=== PATIENT | male | born 1965 | race Hispanic/Latino ===

== ENCOUNTER 2020-04-12 09:26 | Inpatient (IN) | payer SELFPAY ==
[2020-04-12] MEDS ORDERED: SODIUM CHLORIDE 0.9% 1000ML 1,000 ML IVS ONE ×2 (09:41→10:34)
[2020-04-12] MEDS ORDERED: KETOROLAC TROMETHAMINE INJ 30 MG/ML VIAL IV ONE (09:41)
[2020-04-12] MEDS ORDERED: ONDANSETRON INJ 4 MG/2 ML VIAL IV ONE (09:41)
--- NOTE | 2020-04-12 09:50 | ED.PDOC ---
History of Present Illness - General Time Seen by Provider: 04/12/20 09:40 Source: patient, RN notes reviewed, Vital Signs reviewed, other - iPad guest services lead used during all communications with patient Exam Limitations: no limitations - History of Present Illness Initial Comments: 55-year-old male with past medical history of diabetes who presents to ED for 3- day history of generalized weakness, nausea, vomiting and "bone pain". Denies any recent exposure to COVID 19. He denies fever, cough, sore throat, shortness of breath or abdominal pain. Has not taken anything at home for his symptoms. Allergies/Adverse Reactions: Allergies NO KNOWN ALLERGY Allergy (Verified 04/12/20 09:45) Review of Systems - Review of Systems Constitutional: States: malaise. Denies: chills, fever EENTM: Denies: blurred vision, nose congestion, throat pain, throat swelling Respiratory: Denies: cough, short of breath, wheezing Cardiology: Denies: chest pain, edema, palpitations, syncope Gastrointestinal/Abdominal: States: nausea, vomiting. Denies: abdominal pain, diarrhea Genitourinary: States: no symptoms reported Musculoskeletal: States: other - diffuse body aches Skin: States: no symptoms reported Neurological: Denies: headache, paresthesia All other Systems: Reviewed and Negative Family Medical History - Family History Mother Family History: No Known Physical Exam - Physical Exam General Appearance: Alert, Comfortable, No apparent distress Ears, Nose, Throat: other - No erythema or edema to oropharynx Neck: full range of motion, supple Respiratory: chest non-tender, lungs clear, normal breath sounds, no respiratory distress, no accessory muscle use Cardiovascular/Chest: regular rate, rhythm, no murmur Gastrointestinal/Abdominal: non tender, soft, no pulsatile mass Back Exam: no CVA tenderness, no vertebral tenderness Extremity: normal range of motion, non-tender, no pedal edema Neurologic: alert, normal mood/affect Skin Exam: normal color, warm/dry Progress - Progress Progress: 04/12/20 09:52 Full PPE used in room. Stood 6 feet away except for exam. 04/12/20 11:08 Patient presents to ED for 3-day history of fatigue and body aches with nausea and vomiting. Chest x-ray is consistent with COVID 19 infection. He has no respiratory distress or hypoxia and denies feeling short of breath. His pulse ox has been in the upper 90s on room air. Labs show mild DKA with blood glucose of 381. Tachycardia resolved with IV fluids. Sepsis is due to to COVID-19 viral infection. No antibiotics are started due to this. Will give IV fluids, insulin and admit for continued evaluation and treatment. Patient agrees with plan of care. Discussed with Leticia hospitalist, who will admit. - Results/Orders Results/Orders: EKG- Sinus tachycardia, rate 138, nml intervals, No ST abnormality Chest xray EXAM DESCRIPTION: Chest,1 View CLINICAL HISTORY: 55 years Male, cough COMPARISON: None. FINDINGS: The heart and mediastinum are within normal limits. The lung husain are remarkable for a large ill-defined infiltrate within the left upper and mid lung husain. Underlying Covid infection should be considered. The pulmonary vascularity is unremarkable. No active pleural disease is present. IMPRESSION: 1. Large infiltrate in the left lung field suspicious for a Covid infection COVID 19 POSITIVE 04/12/20 11:01 BLOOD CULTURE Stat Laboratory Results - last 24 hr 04/12/20 04/12/20 04/12/20 10:05 10:05 10:10 WBC 15.7 H RBC 4.83 Hgb 14.5 Hct 40.8 L MCV 84.6 MCH 30.2 MCHC 35.6 RDW 13.4 Plt Count 258 MPV 8.4 Absolute Neuts (auto) 14.50 H Absolute Lymphs (auto) 0.50 L Absolute Monos (auto) 0.70 Absolute Eos (auto) 0.00 Absolute Basos (auto) 0.00 Neutrophils % 92.3 H Lymphocytes % 3.1 L Monocytes % 4.4 Eosinophils % 0.0 L Basophils % 0.2 pCO2 pO2 HCO3 ABG pH ABG O2 Saturation ABG Base Excess ABG Deoxyhemoglobin Oxyhemoglobin % Carboxyhemoglobin % Methemoglobin % Sat Calc Total Hemoglobin Sodium 124 L Potassium 3.1 L Chloride 87 L Carbon Dioxide 16 L Anion Gap 24.1 H BUN 21 H Creatinine 1.13 BUN/Creatinine Ratio 18.6 Random Glucose 381 H Serum Osmolality 268.3 L Lactic Acid Calcium 7.7 L Total Bilirubin 1.9 H AST 44 H ALT 36 Alkaline Phosphatase 97 Serum Total Protein 7.9 Albumin 3.4 Globulin 4.5 H Albumin/Globulin Ratio 0.8 L Lipase 55 H Urine Color Yellow Urine Appearance Clear Urine pH 5.5 Ur Specific [place] 1.025 Urine Protein >=300 H Urine Glucose (UA) 500 H Urine Ketones >=160 Urine Blood Moderate H Urine Nitrite Negative Urine Bilirubin Small H Urine Urobilinogen 0.2 Ur Leukocyte Esterase Negative Urine RBC 20-30 H Urine WBC 0 Ur Epithelial Cells 0-1 Urine Bacteria 0 Serum Ketones 04/12/20 04/12/20 04/12/20 10:10 10:34 11:15 WBC RBC Hgb Hct MCV MCH MCHC RDW Plt Count MPV Absolute Neuts (auto) Absolute Lymphs (auto) Absolute Monos (auto) Absolute Eos (auto) Absolute Basos (auto) Neutrophils % Lymphocytes % Monocytes % Eosinophils % Basophils % pCO2 23 L pO2 80 L HCO3 15.4 ABG pH 7.438 ABG O2 Saturation 96.0 ABG Base Excess -6.9 ABG Deoxyhemoglobin 3.9 Oxyhemoglobin % 94.1 Carboxyhemoglobin % 0.7 Methemoglobin % Sat 1.3 Calc Total Hemoglobin 12.7 L Sodium Potassium Chloride Carbon Dioxide Anion Gap BUN Creatinine BUN/Creatinine Ratio Random Glucose Serum Osmolality Lactic Acid 2.9 H* Calcium Total Bilirubin AST ALT Alkaline Phosphatase Serum Total Protein Albumin Globulin Albumin/Globulin Ratio Lipase Urine Color Urine Appearance Urine pH Ur Specific [place] Urine Protein Urine Glucose (UA) Urine Ketones Urine Blood Urine Nitrite Urine Bilirubin Urine Urobilinogen Ur Leukocyte Esterase Urine RBC Urine WBC Ur Epithelial Cells Urine Bacteria Serum Ketones Small Departure - Departure Clinical Impression: COVID-19, Hypokalemia, Dehydration DKA (diabetic ketoacidosis) Qualifiers: Diabetes mellitus type: type 2 Diabetes mellitus complication detail: without coma Qualified Code(s): E11.10 - Type 2 diabetes mellitus with ketoacidosis without coma Time of Disposition: 11:13 Disposition: Admit Patient Condition: Fair Decision To Admit - Decistion To Admit Decision to Admit Date: 04/12/20 Decision to Admit Time: 11:11
--- NOTE | 2020-04-12 10:12 | RAD ---
EXAM DESCRIPTION: Chest,1 View CLINICAL HISTORY: 55 years Male, cough COMPARISON: None. FINDINGS: The heart and mediastinum are within normal limits. The lung husain are remarkable for a large ill-defined infiltrate within the left upper and mid lung husain. Underlying Covid infection should be considered. The pulmonary vascularity is unremarkable. No active pleural disease is present. IMPRESSION: 1. Large infiltrate in the left lung field suspicious for a Covid infection Electronically signed by: Bryn Love MD 04/12/2020 10:10 AM CDT
[2020-04-12] MEDS ORDERED: INSULIN, REG.(HUMAN) 100 U/ML VIAL IV ONE (11:13)
--- NOTE | 2020-04-12 12:10 | HP ---
SUPERVISING PHYSICIAN: Jermaine Izaguirre M.D. Please note that the patient is [id number] and an spanish interpreter was used to get medical history as well as signs and symptoms. History will be minimal due to the language barrier. HISTORY OF PRESENT ILLNESS: This is a 55 year-old male patient that has a medical history of diabetes of unknown type. He came to the Emergency Department with a 3 day history of generalized weakness, nausea, vomiting and generalized muscle aches and pains. He denied any recent exposure to COVID-19. He also denied any fevers, cough or sore throat. No shortness of breath or abdominal pain. He has not been taking any medications at home. He does take some sort of diabetic medications that he gets in [place], but it is of an unknown kind. Vital signs were temperature 98.2, heart rate 132, blood pressure 165/97, respiratory rate 24 to 26 with an O2 saturation of 95% on room air. Laboratory studies were done. His WBCs were 15,700 with a left shift on his differential. Hemoglobin was 14.5, hematocrit 40.8. Blood gas showed a pCO2 of 23, pO2 of 80 and a pH of 7.43. His O2 saturation was 96%. Chemistry showed a sodium of 124, potassium 3.1, chloride 87, carbon dioxide 16, anion gap 24, BUN 21, creatinine 1.13, glucose 381, lactic acid 2.8, calcium 7.7. Total bilirubin was 1.9, AST was 44. Urinalysis showed greater than 300 urine protein, 500 of urine glucose, moderate urine blood, small amount of urine bilirubin and 20 to 30 urine RBCs. Serum ketones were small. COVID-19 test was positive. Blood cultures were obtained. Chest x-ray showed: 1. Large infiltrate in the left lung field suspicious for COVID infection. He was given 2 liters of fluids in the Emergency Room as well as given some Zofran, some Toradol and some regular insulin IV. He was also given azithromycin and Ceftriaxone. His heart rate did come down to the 100s. I was called for hospital admission. PAST MEDICAL HISTORY: 1. Diabetes mellitus. PAST SURGICAL HISTORY: None. OUTPATIENT MEDICATIONS: 1. Some diabetic medication from [place]. ALLERGIES: NO KNOWN DRUG ALLERGIES. FAMILY HISTORY: Unknown. SOCIAL HISTORY: He lives and works in [place]. He denies any tobacco, ETOH or illicit drug use. REVIEW OF SYSTEMS: GENERAL: Negative for chills or fever. HEENT: Negative for sore throat or nasal congestion. RESPIRATORY: Negative for wheezing, coughing or shortness of breath. CARDIAC: Negative for chest pains. GASTROINTESTINAL: Positive for nausea. Negative for vomiting, abdominal pain, diarrhea or constipation. GENITOURINARY: Negative for dysuria. MUSCULOSKELETAL: Positive for myalgias. NEUROLOGIC: Negative for headaches. PHYSICAL EXAMINATION: VITAL SIGNS: Temperature 98.4, heart rate 104, blood pressure 135/87, respiratory rate 22, O2 saturation 99% on 2 liters nasal cannula. GENERAL: This is a 55 year-old male patient who is in no acute distress. HEENT: Normocephalic, atraumatic. Oropharynx is clear. NECK: Supple without mass. RESPIRATORY: Somewhat diminished throughout more so on the left than on the right. He is tachypneic at times with a respiratory rate 22 to 24. CARDIOVASCULAR: Regular rate and rhythm. At times he is tachycardic. GASTROINTESTINAL: Abdomen is soft. It is nondistended, nontender. Bowel sounds are positive. NEUROLOGIC: Awake and alert. LABORATORY AND FILMS: As per the history of present illness. ASSESSMENT: 1. Hyperglycemia in an unknown type diabetic with positive ketones, positive anion gap and normal pH. 2. COVID-19 pneumonia mostly left sided. 3. History of diabetes mellitus, unknown type. Was taking an oral medication from [place]. 4. Acute kidney injury. 5. Poor medical compliance. 6. Nausea and vomiting and dehydration secondary to #1. PLAN: The patient has been admitted to the hospital. He will get fluids from the diabetic ketoacidosis guidelines as well as every 4 hour labs. Will also put him on sliding scale insulin every 4 hours. I have given him some potassium supplementation as well as put potassium in his IV fluids. I have also started him on the pneumonia protocol and continued his Rocephin and azithromycin. I have also given him Lovenox for DVT prophylaxis and Decadron 6 mg IV daily. I have ordered some COVID lab, including a D-dimer, fibrinogen and CRP. Will need to do extensive diabetic teaching and at some point we may need to determine if he has type 1 or type 2 diabetes. We will correct his blood sugars and treat his COVID-19 aggressively, that includes aggressive pulmonary hygiene. Will continue to monitor closely and follow as needed. [facility][id number] [facility]
[2020-04-12] MEDS ORDERED: ONDANSETRON INJ 4 MG/2 ML VIAL IV PRN (13:19)
[2020-04-12] MEDS ORDERED: SODIUM CHLORIDE 0.9% (FLUSH) 10 ML SYG IV PRN (13:19)
[2020-04-12] MEDS ORDERED: GLUCAGON INJ 1 MG VIAL SUBCU PRN (13:25)
[2020-04-12] MEDS ORDERED: DEXTROSE 50% 25 GM/50 ML SYG IV PRN (13:25)
[2020-04-12] MEDS ORDERED: POTASSIUM CHLORIDE 20 MEQ TAB PO ONE (13:27)
[2020-04-12] MEDS ORDERED: cefTRIAXone SODIUM 1 GM in SODIUM CHL 0.9% 50ML MIN-BAG+ 50 ML IVPB ONE (13:32)
[2020-04-12] MEDS ORDERED: ALBUTEROL INHALER 64 PUFF/8GM INH PRN (13:32)
[2020-04-12] MEDS ORDERED: AZITHROMYCIN IV 500 MG in SODIUM CHLORIDE 0.9% 250ML 250 ML IVPB ONE (15:00)
[2020-04-12] MEDS: DEXAMETHASONE INJ 10 MG/ML VIAL IV SCH (15:09)
[2020-04-12] MEDS: IV SET AND CAP CHANGE INJ INJ SCH (15:10)
[2020-04-12] MEDS: ENOXAPARIN SODIUM 40 MG/0.4 ML SYG SUBCU SCH (15:10)
[2020-04-12] MEDS: KCL 20 MEQ/NS 1,000 ML IVS PRN ×2 (15:11→19:35)
[2020-04-12] MEDS: INSULIN LISPRO 100 UNITS/ML PEN SUBCU SCH ×3 (15:20→19:37)
[2020-04-12] MEDS: ALBUTEROL INHALER 64 PUFF/8GM INH SCH ×2 (16:25→20:27)
[2020-04-12] MEDS ORDERED: HALOPERIDOL LACTATE INJ 5 MG/ML VIAL IM PRN (17:59)
[2020-04-12] MEDS ORDERED: PROMETHAZINE HCL INJ 25 MG in SODIUM CHLORIDE 0.9% 50ML 50 ML IVPB PRN (18:00)
[2020-04-12] MEDS ORDERED: CALCIUM GLUCONATE INJ 1 GM in SODIUM CHLORIDE 0.9% 50ML 50 ML IVPB ONE (18:57)
[2020-04-12] MEDS ORDERED: KCL 20 MEQ/NS 1,000 ML IVS ONE (19:16)
[2020-04-13] MEDS: INSULIN LISPRO 100 UNITS/ML PEN SUBCU SCH ×6 (00:32→20:15)
[2020-04-13] MEDS ORDERED: PANTOPRAZOLE SODIUM IV 40 MG VIAL ONE (04:23)
[2020-04-13] MEDS: PANTOPRAZOLE SODIUM IV 40 MG VIAL IV SCH (05:33)
[2020-04-13] MEDS: cefTRIAXone SODIUM 1 GM in SODIUM CHL 0.9% 50ML MIN-BAG+ 50 ML IVPB SCH (08:43)
[2020-04-13] MEDS: DEXAMETHASONE INJ 10 MG/ML VIAL IV SCH (08:44)
[2020-04-13] MEDS: ENOXAPARIN SODIUM 40 MG/0.4 ML SYG SUBCU SCH (08:44)
[2020-04-13] MEDS ORDERED: AZITHROMYCIN IV 500 MG VIAL IVPB ONE (08:56)
[2020-04-13] MEDS ORDERED: SODIUM CHLORIDE 0.9% 250ML 250 ML ONE (08:56)
[2020-04-13] MEDS ORDERED: CALCIUM GLUCONATE INJ 1 GM in SODIUM CHLORIDE 0.9% 50ML 50 ML IVPB ONE (09:22)
[2020-04-13] MEDS: AZITHROMYCIN IV 500 MG in SODIUM CHLORIDE 0.9% 250ML 250 ML IVPB SCH (09:24)
[2020-04-13] MEDS: metFORMIN XR 500 MG TAB.ER.24 PO SCH ×2 (09:35→16:48)
[2020-04-13] MEDS: KCL 20 MEQ/NS 1,000 ML IVS PRN (09:35)
[2020-04-13] MEDS: ALBUTEROL INHALER 64 PUFF/8GM INH SCH ×4 (11:57→20:20)
--- NOTE | 2020-04-13 15:08 | PN ---
SUPERVISING PHYSICIAN: Jermaine Izaguirre M.D. DATE: 04/13/20 SUBJECTIVE: Please note communication was limited due to the fact that he is Ma[place] speaking only, bedside electronic electrical contacts adjuster was used. The patient is feeling much better. He did say that he had abdominal pain yesterday and that it was relieved with Haldol. He said most of his abdominal pain is around the time he eats. Otherwise no complaints and no other reports by nursing. OBJECTIVE: VITAL SIGNS: Temperature 98.7, heart rate 75, blood pressure 145/71, respiratory rate 18, O2 saturation 96% on room air. RESPIRATORY: Essentially clear to auscultation bilaterally. CARDIAC: Regular rate and rhythm. NEUROLOGIC: He is awake and alert. LABORATORY: WBCs have improved to 11,200 with hemoglobin 11.6, hematocrit 32. He has a left shift on his differential. Fibrinogen has come down to 774 with a D-dimer that has improved to 2,720. Sodium is slightly low at 131 with potassium 3.8, chloride 103, carbon dioxide 20. BUN 21, creatinine has improved to 0.77. Glucose has run between 247 and 363. Calcium 7.1, C reactive protein has improved to 23.9. Serum ketones are negative. Preliminary blood cultures show no growth after 24 hours. All other labs and films have been reviewed via the EMR. ASSESSMENT: 1. Hyperglycemia in an unknown type diabetic with positive ketones, positive anion gap and normal pH. 2. COVID-19 pneumonia mostly left sided. 3. History of diabetes mellitus, unknown type. Was taking an oral medication from [place]. 4. Mild electrolyte imbalance. 5. Moderate to severe hypocalcemia. He has required 2 calcium gluconate infusions. 6. Poor medical compliance. 7. Nausea and vomiting and dehydration secondary to #1. 8. Acute kidney injury that has improved. PLAN: We will continue present supportive care. I have given him a second infusion of calcium gluconate. Will recheck his labs tomorrow. His sliding scale insulin has been changed to a.c. and h.s. Will continue to monitor his COVID labs and continue his aggressive pulmonary hygiene as well as his steroids, Lovenox and antibiotics. I have ordered a chest x-ray in the morning. I also started him on Metformin as well as Levemir 10 units at h.s. He will need some medical assistance at some point and I have consulted Corporate Librarian. I have also decreased his IV fluids as well as changed it. Will continue to monitor closely and follow as needed. #[id number] [facility]
[2020-04-13] MEDS: KCL 20MEQ/0.45% NS 1,000 ML IVS PRN (19:29)
[2020-04-13] MEDS ORDERED: INSULIN DETEMIR 100 UNITS/ML PEN SUBCU ONE (19:59)
[2020-04-13] MEDS: INSULIN DETEMIR 100 UNITS/ML PEN SUBCU SCH (20:02)
[2020-04-14] MEDS: PANTOPRAZOLE SODIUM IV 40 MG VIAL IV SCH (06:02)
[2020-04-14] MEDS: ACETAMINOPHEN 325 MG TAB PO PRN ×2 (06:12→17:13)
--- NOTE | 2020-04-14 07:11 | RAD ---
EXAM: XR Chest, 1 View CLINICAL HISTORY: The patient is 55 years old and is Male; covid TECHNIQUE: Single upright portable view of the chest. COMPARISON: April 12, 2020. FINDINGS: Lungs: Opacification in the lateral left lung again noted, not significantly changed. Pleural space: Unremarkable. No pneumothorax. Heart: Cardiomediastinal silhouette is not significantly changed given the differences in technique. Mediastinum: See above. Bones/joints: The bones and joints are unchanged as visualized. Upper abdomen: No free air in the visualized upper abdomen. IMPRESSION: Opacification in the lateral left lung again noted, not significantly changed. Electronically signed by: Steff Grimes MD 04/14/2020 7:10 AM CDT
[2020-04-14] MEDS: metFORMIN XR 500 MG TAB.ER.24 PO SCH ×2 (07:43→16:55)
[2020-04-14] MEDS: ALBUTEROL INHALER 64 PUFF/8GM INH SCH ×4 (07:43→20:00)
[2020-04-14] MEDS: INSULIN LISPRO 100 UNITS/ML PEN SUBCU SCH ×4 (08:05→20:46)
[2020-04-14] MEDS: cefTRIAXone SODIUM 1 GM in SODIUM CHL 0.9% 50ML MIN-BAG+ 50 ML IVPB SCH (08:22)
[2020-04-14] MEDS: KCL 20MEQ/0.45% NS 1,000 ML IVS PRN (08:22)
[2020-04-14] MEDS: ENOXAPARIN SODIUM 40 MG/0.4 ML SYG SUBCU SCH (08:22)
[2020-04-14] MEDS: DEXAMETHASONE INJ 10 MG/ML VIAL IV SCH (08:22)
[2020-04-14] MEDS: AZITHROMYCIN IV 500 MG in SODIUM CHLORIDE 0.9% 250ML 250 ML IVPB SCH (09:52)
[2020-04-14] MEDS ORDERED: ACETAMINOPHEN 325 MG TAB ONE (17:11)
[2020-04-14] MEDS: ENOXAPARIN SODIUM 80 MG/0.8 ML SYG SUBCU SCH (18:26)
[2020-04-14] MEDS: INSULIN DETEMIR 100 UNITS/ML PEN SUBCU SCH (20:46)
--- NOTE | 2020-04-14 20:51 | PN ---
SUPERVISING PHYSICIAN: Jakub Villegas M.D. DATE: 04/14/20 SUBJECTIVE: The patient does not really have any complaints. He is anxious to go home. He says he feels a little bit better since admission. Doesn't show to be in distress. A review of his labs show that he is starting to trend in regards to his D-dimer and other laboratory studies, including C reactive protein. Nurses deny any concerns overnight. No acute desaturations. Blood sugar seems to be stable. OBJECTIVE: VITAL SIGNS: Temperature 98.4, pulse 78, blood pressure 106/78, respirations 16, satting 96% on room air at rest. GENERAL: The patient is resting comfortably. Does not seem to be in any acute distress. CHEST: Remains clear to auscultation, just slightly diminished towards the bases. HEART: Regular rate and rhythm. ABDOMEN: Soft, non-tender. Positive bowel sounds. NEUROLOGIC: He is alert and oriented times three. LABORATORY: White count now has normalized to 9,500, hemoglobin 11.7, hematocrit 32.1, platelet count 288,000. Coagulation studies show D-dimer now is down to 2520 which is showing a trend from admission as well as his fibrinogen is down to 604. Chemistries show C reactive protein is down to 10.6 from 28.6. Sodium is 134 corrected for blood sugars to 139 and his blood sugars range between 135 and 299. Calcium is 7.1 corrected to 8.2 for albumin of 2.5. Ketones are negative starting yesterday. MICROBIOLOGY: Blood cultures are negative at 48 hours. RADIOLOGY: Repeat chest x-ray this morning per radiology interpretation of a single view chest shows opacification in the lateral left lung again noted. No significant change from admission. ASSESSMENT: 1. Diabetes mellitus type 2, uncontrolled with the patient being treated in [place] with a history of being on oral medication. 2. COVID-19 pneumonia noted on left side. 3. Electrolyte imbalance secondary to #1, resolving. 4. Hypocalcemia, improving with previous administration of 2 grams of calcium gluconate. 5. Poor medical compliance without a primary care physician. 6. Nausea and vomiting secondary to #1, resolved. 7. Acute kidney injury, resolved, secondary to #1. PLAN: At this point will continue monitoring the patient's labs. He is starting to trend down. His calcium looks to be stable. In regards to the COVID treatments, given that he is on Lovenox will go ahead and put him on weight based Lovenox tonight with the intention of sending him home on 30 days of Eliquis with samples. He is on Metformin and Levemir. It seems like his blood sugars are fairly stable at this point. He will certainly need to followup with somebody as a primary care physician to further establish or if he has a primary care physician in [place], certainly he can do that. I would anticipate will be able to possibly discharge tomorrow if his labs are showing continuation of trending down. He will certainly need to go home on some Metformin. I am not sure if we will send him home on continued insulin treatment or not. In regards to his COVID treatment, he will go home on azithromycin and continue antibiotics as well as anticoagulation. He will continue on Decadron but will need to closely monitor. Of course, he will finish a 10 day course at discharge which should help again with his blood sugars to be better controlled. Until we can transition him to outpatient management will continue to monitor and treat as needed. #[id number] [facility]
[2020-04-15] MEDS: PANTOPRAZOLE SODIUM IV 40 MG VIAL IV SCH (06:10)
[2020-04-15] MEDS: ENOXAPARIN SODIUM 80 MG/0.8 ML SYG SUBCU SCH ×2 (06:10→20:44)
[2020-04-15] MEDS: metFORMIN XR 500 MG TAB.ER.24 PO SCH ×2 (07:25→16:54)
[2020-04-15] MEDS: INSULIN LISPRO 100 UNITS/ML PEN SUBCU SCH ×4 (07:40→20:45)
[2020-04-15] MEDS: cefTRIAXone SODIUM 1 GM in SODIUM CHL 0.9% 50ML MIN-BAG+ 50 ML IVPB SCH (08:54)
[2020-04-15] MEDS: DEXAMETHASONE INJ 10 MG/ML VIAL IV SCH (08:54)
[2020-04-15] MEDS: ACETAMINOPHEN 325 MG TAB PO PRN (10:08)
[2020-04-15] MEDS: AZITHROMYCIN IV 500 MG in SODIUM CHLORIDE 0.9% 250ML 250 ML IVPB SCH (10:08)
[2020-04-15] MEDS: ALBUTEROL INHALER 64 PUFF/8GM INH SCH ×4 (10:14→20:30)
[2020-04-15] MEDS ORDERED: POTASSIUM CHLORIDE 20 MEQ TAB PO ONE (11:28)
[2020-04-15] MEDS: IV SET AND CAP CHANGE INJ INJ SCH (13:06)
[2020-04-15] MEDS: INSULIN DETEMIR 100 UNITS/ML PEN SUBCU SCH (20:43)
--- NOTE | 2020-04-15 20:55 | PN ---
SUPERVISING PHYSICIAN: Jakub Villegas M.D. DATE: 04/15/20 SUBJECTIVE: The patient ran a fever this morning. T max was 101.4. Vital signs showed his blood pressure at 123/72 and he was satting still at rest at 94% on room air. He does not really complain of anything other than he is just tired and not feeling well overall. No chest pains. No nausea or vomiting. No diarrhea. OBJECTIVE: VITAL SIGNS: T max temperature 101.4, blood pressure 123/72, heart rate 71, respirations 15, satting 94% on room air. GENERAL: The patient is resting comfortably. Does not seem to be in any acute distress. CHEST: Remains clear to auscultation, just slightly diminished towards the bases. HEART: Regular rate and rhythm. ABDOMEN: Soft, non-tender. Positive bowel sounds. NEUROLOGIC: He is alert and oriented times three. LABORATORY: White count yesterday was normalized to 9,500. He does not show a left shift. Today, his D-dimer is down a little bit from 2520 yesterday to 2110 today. C reactive protein actually went up to 11.5 which I suspect was resulting from the temperature. Sodium is 129 corrected to 131 for a glucose of 140, calcium 7.3, potassium 3.1. MICROBIOLOGY: Blood cultures remain negative. RADIOLOGY: No repeat chest x-ray today. ASSESSMENT: 1. Diabetes mellitus type 2, uncontrolled with the patient being treated in [place] with a history of being on oral medication. 2. COVID-19 pneumonia noted on left side with the patient continuing to show fever. 3. Electrolyte imbalance secondary to #1, resolving. 4. Hypocalcemia, improving with previous administration of 2 grams of calcium gluconate. 5. Poor medical compliance without a primary care physician. 6. Nausea and vomiting secondary to #1, resolved. 7. Acute kidney injury, resolved, secondary to #1. PLAN: I was really hoping to be able to maybe discharge the patient today, but his C reactive protein went up and he again ran 101.4 fever. He does not show to be in any distress. I did change him to weight based Lovenox last night. Will continue with current protocol treatments. As his inflammatory markers show a trending down to more baseline levels and stable and he is no longer running a fever, will transition to outpatient management. Until then will continue to monitor and treat as needed. #[id number] [facility]
[2020-04-15] MEDS ORDERED: MAGNESIUM HYDROXIDE 30 ML UD PO PRN (21:27)
[2020-04-16 05:38] VITALS: TEMP 97.5; O2SAT 96
[2020-04-16] MEDS: PANTOPRAZOLE SODIUM IV 40 MG VIAL IV SCH (06:40)
--- NOTE | 2020-04-16 07:20 | RAD ---
Exam(s): XR CHEST 1 VIEW: 04/16/2020 7:00 AM CDT Indication: COVID PNA MAIN Comparison Study Date: April 14, 2020 Technique: AP chest radiograph. Findings: There is airspace opacity in the left mid to lower lung. This is unchanged from prior exam. The right lung remains clear. No pleural effusion or pneumothorax. Heart size is normal. Normal mediastinal contours. No bone abnormality is identified. IMPRESSION: Unchanged left lung airspace opacity. No new abnormality identified. Electronically signed by: Percy Dee MD 04/16/2020 7:18 AM CDT
[2020-04-16] MEDS ORDERED: POTASSIUM CHLORIDE 20 MEQ TAB PO SCH (07:30)
[2020-04-16] MEDS: ALBUTEROL INHALER 64 PUFF/8GM INH SCH ×2 (08:47→13:00)
[2020-04-16] MEDS: INSULIN LISPRO 100 UNITS/ML PEN SUBCU SCH ×2 (09:18→13:20)
[2020-04-16] MEDS: DEXAMETHASONE INJ 10 MG/ML VIAL IV SCH (09:24)
[2020-04-16] MEDS: metFORMIN XR 500 MG TAB.ER.24 PO SCH (09:24)
[2020-04-16] MEDS: ENOXAPARIN SODIUM 80 MG/0.8 ML SYG SUBCU SCH (09:24)
[2020-04-16] MEDS: cefTRIAXone SODIUM 1 GM in SODIUM CHL 0.9% 50ML MIN-BAG+ 50 ML IVPB SCH (09:25)
[2020-04-16] MEDS: AZITHROMYCIN IV 500 MG in SODIUM CHLORIDE 0.9% 250ML 250 ML IVPB SCH (10:01)
[2020-04-16 14:48] VITALS: BP 104/75
--- NOTE | 2020-04-17 10:25 | DS ---
SUPERVISING PHYSICIAN: Moo Villegas MD ADMISSION DIAGNOSIS: 1. Hyperglycemia in an unknown type diabetic with positive ketones, positive anion gap and normal pH. 2. COVID-19 pneumonia, mostly left sided. 3. History of diabetes mellitus, unknown type. He was taking an oral medication from [place]. 4. Acute kidney injury. 5. Poor medical compliance. 6. Nausea, vomiting and dehydration secondary to #1. DISCHARGE DIAGNOSIS: 1. Diabetes mellitus, type 2, uncontrolled with the patient previously having been on medication from [place] with the patient discharged on metformin, showing stable blood sugars but elevated secondary to steroid administration for treatment of COVID-19 pneumonia. 2. COVID-19 pneumonia involving the left side, showing good response to treatment course on Decadron, azithromycin, cefdinir and Eliquis for discharge. 3. Hypocalcemia, improved, etiology uncertain with the patient being asymptomatic. 4. Poor medical compliance without a primary care physician. 5. Acute kidney injury, resolved prior to discharge. 6. Microhematuria, needing followup as an outpatient, possibly just related to uncontrolled diabetes. REASON FOR HOSPITALIZATION: This is a 55 year-old male patient that has a medical history of diabetes of unknown type. He came to the Emergency Department with a 3 day history of generalized weakness, nausea, vomiting and generalized muscle aches and pains. He denied any recent exposure to COVID-19. He also denied any fevers, cough or sore throat. No shortness of breath or abdominal pain. He has not been taking any medications at home. He does take some sort of diabetic medications that he gets in [place], but it is of an unknown kind. Vital signs were temperature 98.2, heart rate 132, blood pressure 165/97, respiratory rate 24 to 26 with an O2 saturation of 95% on room air. Laboratory studies were done. His WBCs were 15,700 with a left shift on his differential. Hemoglobin was 14.5, hematocrit 40.8. Blood gas showed a pCO2 of 23, pO2 of 80 and a pH of 7.43. His O2 saturation was 96%. Chemistry showed a sodium of 124, potassium 3.1, chloride 87, carbon dioxide 16, anion gap 24, BUN 21, creatinine 1.13, glucose 381, lactic acid 2.8, calcium 7.7. Total bilirubin was 1.9, AST was 44. Urinalysis showed greater than 300 urine protein, 500 of urine glucose, moderate urine blood, small amount of urine bilirubin and 20 to 30 urine RBCs. Serum ketones were small. COVID-19 test was positive. Blood cultures were obtained. LABORATORY: White count on discharge was 7,800. On admission, it was 15,700. His differential was without a left shift. It did show a few bands on discharge at 5%, but his white count had normalized. His hemoglobin was stable at 12.7, hematocrit 34.8, platelet count 319,000. Coagulation studies showed fibrinogen started at 894 and was down 604 prior to discharge. Initially D-dimer was 3160 and prior to discharge was 824. Blood gas analysis on admission was fairly unremarkable with pH 7.43, pCO2 23, pO2 80, bicarb 15.4. Chemistries on discharge showed normal electrolytes. Calcium 7.6 corrected to 8.2 with albumin 2.5. He did have C-reactive protein that was elevated at 11.5, but stable. Sodium 132 corrected for glucose 140. Blood sugars ranged between 132 and 295 prior to discharge. BUN 13, creatinine 0.74. Urinalysis on admission showed 300 protein, 500 glucose, moderate amount of blood, small amount of bilirubin, leukocyte esterase negative. Microscopic revealed 20 to 30 RBCs. He had small amount of ketones on admission and normalized prior to discharge to negative. MICROBIOLOGY: Blood cultures negative at 4 days. Respiratory panel was positive for COVID-19. All other viral and bacterial targets were negative. Please see that report for details. RADIOLOGY: Chest x-ray initially on admission per radiologic interpretation showed large infiltrate in the left lung field consistent with COVID infection. Followup chest x-ray on 04/16/20 on day of discharge per radiologic interpretation showed unchanged left lung airspace opacity, no new abnormalities identified. Please see those reports for details. HOSPITAL COURSE: Mr. Cavazos was admitted for both uncontrolled diabetes and COVID pneumonia. He was treated with antibiotics to include Rocephin, azithromycin, Decadron. Given his elevation of D-dimer, he was started on 1 mg per kg of Lovenox. In regards to his blood sugar, he was started on Levemir 10 units daily and metformin 500 mg b.i.d. His coagulation studies and inflammatory markers were showing response to treatment and trending down to baseline levels and showing to be stable. Clinically, he was stable and maintaining O2 saturations on room air with final vital signs on discharge showing temperature 97.5, blood pressure 104/75, heart rate 83, saturation 96% on room air. It was felt he had progressed well enough in his treatment course to continue with outpatient management. Therefore, he was discharged to followup with his primary care provider. PLAN: Mr. Cavazos was discharged with instructions to establish with a primary care provider. He was instructed to go to [facility] if possible. If not, somebody in [place] where he resides. He was instructed on diabetic diet. He was given multiple educational materials printed in [place] as well as his dietary water tester helped with some of the diabetic planning on discharge. He was to follow a diabetic diet. He was instructed to check his blood sugars at least 3 times a day and take to his primary care provider when he is seen in followup. He was to increase his activity as tolerated and given instructions to remain isolated for a total of 10 days and 3 days post discharge including the time he was showing to be symptomatic. He was given multiple instructions on how to wear a face mask and on social isolation until he was cleared to go back to work. MEDICATIONS ON DISCHARGE: 1. Decadron 6 mg daily for 5 days, no refills. 2. Eliquis 5 mg twice daily, samples given for a total of 26 days. 3. Levemir 10 units subcutaneously daily, 1 pen, no refills. 4. Metformin 500 mg twice daily, #60, no refills. 5. Cefdinir 300 mg twice daily for 5 days, no refills. 6. Albuterol inhaler 2 puffs q.6h. as needed, 1 inhaler, no refills. CONDITION ON DISCHARGE: Stable and improved. DISPOSITION: The patient was discharged home. #[id number] [facility]
== END 2020-04-16 14:15 | disposition home or self-care (01) | DRG 871 ==
LOC: EDBD → ER 09:26 → OBSVTOIN 12:06 → MS 12:06
PROVIDERS: ADMIT Nurse Practitioner Acute Care; ATTEND Nurse Practitioner Family
DX: A41.89 Other specified sepsis (principal); U07.1 COVID-19; J12.89 Other viral pneumonia; N17.9 Acute kidney failure, unspecified; E10.10 Type 1 diabetes mellitus with ketoacidosis without coma; E86.0 Dehydration; E83.51 Hypocalcemia; R31.29 Other microscopic hematuria; E87.6 Hypokalemia; T38.0X5A Adverse effect of glucocorticoids and synthetic analogues, initial encounter; Z91.19 Patient's noncompliance with other medical treatment and regimen

== ENCOUNTER → 2020-04-24 | Outpatient (CLI) | payer SELFPAY | LOC: YCFC.O 10:09 → EDBD 10:09 | PROVIDERS: ATTEND Nurse Practitioner Family | DX: E11.65 Type 2 diabetes mellitus with hyperglycemia (principal); U07.1 COVID-19; N17.9 Acute kidney failure, unspecified ==

== ENCOUNTER → 2020-07-25 | Outpatient (CLI) | payer SELFPAY | LOC: YCFC.O 17:16 | PROVIDERS: ATTEND Nurse Practitioner Family | DX: E11.9 Type 2 diabetes mellitus without complications (principal) ==